=== PATIENT | male | born 1990 | race African-American/Black ===

== ENCOUNTER 2023-05-18 15:09 | Emergency (ER) | payer SELFPAY ==
[~2023-05-18] VITALS: Ht 172.7 cm; Wt 74.8 kg
[2023-05-18] MEDS ORDERED: TORADOL IM STA (15:17)
[2023-05-18] MEDS ORDERED: TORADOL ONE (15:30)
[2023-05-18 15:43] VITALS: BP 149/77; PULSE 81; RESP 18; TEMP 97.9; O2SAT 96
[2023-05-18 15:55] LABS: BASOPHIL % 0.6 % (0.0-0.2); EOSINOPHIL # 0.5 10^3/uL (0.0-0.2); EOSINOPHIL % 6.7 % (0.0-5.0); HEMATOCRIT(ML) 43.7 % (37.0-53.0); HEMOGLOBIN 14.6 g/dL (13.9-16.3); LYMPHOCYTES # 3.18 10^3/uL1 (1.0-4.8); LYMPHOCYTES % 47.3 % (24.0-44.0); MEAN CORP HGB CONCENTRATION 33.4 g/dL (33-36.5); MEAN CORP VOLUME 101.6 fL (78-100); MONOCYTES # 0.7 10^3/uL (0.3-0.8); MONOCYTES % 10.3 % (5.0-12.0); NEUTROPHIL # 2.4 10^3/uL (1.8-7.7); NEUTROPHILS % 35.1 % (41.0-85.0); PLATELET COUNT 219 10^3/uL (150-400); RED CELL DISTRIBUTION WIDTH 11.3 % (11.5-14.5); WHITE BLOOD CELL 6.7 10^3/uL (4.5-11.0)
[2023-05-18 15:57] LABS: +ADD MANUAL DIFF(NO CHRG) NO
[2023-05-18 15:58] LABS: BILIRUBIN,URINE NEGATIVE (NEGATIVE); LEUKOCYTE ESTERASE ,URINE TRACE (NEGATIVE); NITRATE,URINE NEGATIVE (NEGATIVE); PH,URINE 8.5 (4.5-8.0)
[2023-05-18 16:04] LABS: APPEARANCE,URINE CLEAR; UA COLOR YELLOW
[2023-05-18 16:18] LABS: ALBUMIN(ML) 4.3 g/dL (3.4-5.0); ALBUMIN/GLOBULIN RATIO 1.131; ANION GAP 11.7; CALCIUM 9.5 mg/dL (8.4-10.5); CARBON DIOXIDE 31.2 mmol/L (20.0-32); CREATININE SERUM 1.23 mg/dL (0.59-1.40); POTASSIUM 3.9 mmol/L (3.6-5.2)
[2023-05-18 16:20] LABS: INR 1.1
[2023-05-18] MEDS ORDERED: FLAGYL PO STA (16:41)
[2023-05-18] MEDS ORDERED: FLAGYL ONE (16:46)
== END 2023-05-18 16:52 | disposition home or self-care (01) ==
LOC: ER 15:09
DX: A59.03 Trichomonal cystitis and urethritis (principal); F12.90 Cannabis use, unspecified, uncomplicated
CPT/HCPCS: 99285; 74176; 96372; 87086; 80053; 85025; 36415; 81001; 83690; 85610; 85730; J1885